=== PATIENT | female | born 2000 | race Two or more races ===

== ENCOUNTER 2020-06-23 15:46 | Emergency (ER) | payer OTHER ==
[~2020-06-23] VITALS: Ht 149.9 cm; Wt 54.4 kg
[2020-06-23 16:00] VITALS: BP 119/53
[2020-06-23] MEDS ORDERED: cefTRIAXone SOD 1,000 MG VL IM ONE (17:45)
== END 2020-06-23 19:33 | disposition home or self-care (01) ==
LOC: ER 15:46
DX: S81.012D Laceration without foreign body, left knee, subsequent encounter (principal); W45.8XXD Other foreign body or object entering through skin, subsequent encounter
CPT/HCPCS: 96372; 99283; J0696

== ENCOUNTER 2021-07-27 12:40 | Observation (INO) | payer MEDICAID ==
[2021-07-27] MEDS ORDERED: PREN-96 PO (13:15)
== END 2021-07-27 14:40 | disposition home or self-care (01) ==
LOC: LDRP 12:40
PROVIDERS: ADMIT Obstetrics & Gynecology Obstetrics; ATTEND Obstetrics & Gynecology Obstetrics
DX: O40.2XX0 Polyhydramnios, second trimester, not applicable or unspecified (principal); O26.892 Other specified pregnancy related conditions, second trimester; R60.0 Localized edema; Z3A.25 25 weeks gestation of pregnancy
CPT/HCPCS: 59025; 81002; 94760; G0378

== ENCOUNTER 2021-08-05 09:57 | Observation (INO) | payer MEDICAID ==
[~2021-08-05 09:57] MED LIST: PREN-96 PO
== END 2021-08-05 11:54 | disposition home or self-care (01) ==
LOC: LDRP 10:43
PROVIDERS: ADMIT Obstetrics & Gynecology; ATTEND Obstetrics & Gynecology
DX: O40.2XX0 Polyhydramnios, second trimester, not applicable or unspecified (principal); Z3A.27 27 weeks gestation of pregnancy
CPT/HCPCS: 59025; 81002; 94760; G0378

== ENCOUNTER 2021-08-12 09:59 | Observation (INO) | payer MEDICAID | END 2021-08-12 12:03 | disposition home or self-care (01) | LOC: LDRP 11:11 | PROVIDERS: ADMIT Obstetrics & Gynecology; ATTEND Obstetrics & Gynecology | DX: O40.3XX0 Polyhydramnios, third trimester, not applicable or unspecified (principal); Z3A.28 28 weeks gestation of pregnancy | CPT/HCPCS: 59025; 81002; 94760; G0378 ==

== ENCOUNTER 2021-08-19 11:32 | Observation (INO) | payer MEDICAID | END 2021-08-19 13:48 | disposition home or self-care (01) | LOC: LDRP 11:32 | PROVIDERS: ADMIT Obstetrics & Gynecology; ATTEND Obstetrics & Gynecology | DX: O40.3XX0 Polyhydramnios, third trimester, not applicable or unspecified (principal); O26.893 Other specified pregnancy related conditions, third trimester; R10.9 Unspecified abdominal pain; Z3A.29 29 weeks gestation of pregnancy | CPT/HCPCS: 59025; 81002; G0378 ==

== ENCOUNTER 2021-08-26 07:41 | Observation (INO) | payer MEDICAID | END 2021-08-26 12:54 | disposition home or self-care (01) | LOC: LDRP 11:25 | PROVIDERS: ADMIT Obstetrics & Gynecology; ATTEND Obstetrics & Gynecology | DX: O40.3XX0 Polyhydramnios, third trimester, not applicable or unspecified (principal); Z3A.30 30 weeks gestation of pregnancy | CPT/HCPCS: 59025; 81002; 94760; G0378 ==

== ENCOUNTER 2021-09-02 11:50 | Observation (INO) | payer MEDICAID | END 2021-09-02 13:35 | disposition home or self-care (01) | LOC: LDRP 11:50 → UNDOADMOB 11:50 → LDRP 12:55 → UNDODISOB 13:35 | PROVIDERS: ADMIT Obstetrics & Gynecology; ATTEND Obstetrics & Gynecology | DX: O40.3XX0 Polyhydramnios, third trimester, not applicable or unspecified (principal); Z3A.31 31 weeks gestation of pregnancy | CPT/HCPCS: 59025; 81002; 94760; G0378 ==

== ENCOUNTER 2021-09-10 07:35 | Observation (INO) | payer MEDICAID | END 2021-09-10 15:48 | disposition home or self-care (01) | LOC: LDRP 14:06 → UNDOADMOB 14:06 → LDRP 14:08 | PROVIDERS: ADMIT Obstetrics & Gynecology; ATTEND Obstetrics & Gynecology | DX: O40.3XX0 Polyhydramnios, third trimester, not applicable or unspecified (principal); O48.0 Post-term pregnancy; Z3A.32 32 weeks gestation of pregnancy | CPT/HCPCS: 59025; 76818; 94760; G0378 ==

== ENCOUNTER 2021-09-14 07:27 | Observation (INO) | payer MEDICAID | END 2021-09-14 12:26 | disposition home or self-care (01) | LOC: UNDOADMOB 10:15 → LDRP 10:15 → UNDODISOB 12:26 | PROVIDERS: ADMIT Obstetrics & Gynecology Obstetrics; ATTEND Obstetrics & Gynecology Obstetrics | DX: O40.3XX0 Polyhydramnios, third trimester, not applicable or unspecified (principal); Z3A.32 32 weeks gestation of pregnancy | CPT/HCPCS: 59025; 76818; 81002; G0378 ==

== ENCOUNTER 2021-09-17 11:15 | Observation (INO) | payer MEDICAID ==
[~2021-09-17] VITALS: Ht 149.9 cm; Wt 70.3 kg
== END 2021-09-17 12:44 | disposition home or self-care (01) ==
LOC: LDRP 11:15 → UNDOADMOB 11:15 → LDRP 11:24 → UNDODISOB 12:44
PROVIDERS: ADMIT Obstetrics & Gynecology; ATTEND Obstetrics & Gynecology
DX: O40.3XX0 Polyhydramnios, third trimester, not applicable or unspecified (principal); Z3A.33 33 weeks gestation of pregnancy
CPT/HCPCS: 59025; 76818; 81002; 94760; G0378

== ENCOUNTER 2021-09-22 07:37 | Observation (INO) | payer MEDICAID ==
[~2021-09-22] VITALS: Ht 149.9 cm; Wt 70.3 kg
[2021-09-23] MEDS ORDERED: ALBUMIN 5% 0 ML IV ONE (04:33)
== END 2021-09-25 15:41 | disposition home or self-care (01) ==
LOC: LDRP 09-25 14:03 → UNDOADMOB 09-25 14:03 → LDRP 09-25 14:33 → UNDODISOB 09-25 15:41
PROVIDERS: ADMIT Obstetrics & Gynecology; ATTEND Obstetrics & Gynecology
DX: O40.3XX0 Polyhydramnios, third trimester, not applicable or unspecified (principal); Z3A.34 34 weeks gestation of pregnancy
CPT/HCPCS: 59025; 76818; 81002; 94760; G0378

== ENCOUNTER 2021-09-28 08:45 | Observation (INO) | payer MEDICAID ==
[~2021-09-28] VITALS: Ht 149.9 cm; Wt 70.3 kg
== END 2021-10-01 15:18 | disposition home or self-care (01) ==
LOC: UNDOADMOB 08:45 → LDRP 08:45 → UNDOADMOB 10-01 14:03 → UNDODISOB 10-01 15:18
PROVIDERS: ADMIT Obstetrics & Gynecology; ATTEND Obstetrics & Gynecology
DX: O40.3XX0 Polyhydramnios, third trimester, not applicable or unspecified (principal); Z3A.35 35 weeks gestation of pregnancy
CPT/HCPCS: 59025; 76818; 81002; 94760; G0378

== ENCOUNTER 2021-10-05 11:00 | Observation (INO) | payer MEDICAID ==
[~2021-10-05] VITALS: Ht 149.9 cm; Wt 70.3 kg
== END 2021-10-05 14:06 | disposition home or self-care (01) ==
LOC: LDRP 11:00 → UNDOADMOB 11:00 → LDRP 11:39 → UNDODISOB 14:06
PROVIDERS: ADMIT Obstetrics & Gynecology Obstetrics; ATTEND Obstetrics & Gynecology Obstetrics
DX: O36.8930 Maternal care for other specified fetal problems, third trimester, not applicable or unspecified (principal); O40.3XX0 Polyhydramnios, third trimester, not applicable or unspecified; Z3A.35 35 weeks gestation of pregnancy
CPT/HCPCS: 59025; 76818; 81002; 94760; G0378

== ENCOUNTER 2021-10-08 10:32 | Observation (INO) | payer MEDICAID | END 2021-10-08 13:32 | disposition home or self-care (01) | LOC: LDRP 11:58 | PROVIDERS: ADMIT Obstetrics & Gynecology; ATTEND Obstetrics & Gynecology | DX: O40.3XX0 Polyhydramnios, third trimester, not applicable or unspecified (principal); Z3A.36 36 weeks gestation of pregnancy | CPT/HCPCS: 59025; 76818; 81002; 94760; G0378 ==

== ENCOUNTER 2021-10-27 08:49 | Observation (INO) | payer MEDICAID | END 2021-10-27 10:07 | disposition home or self-care (01) | LOC: UNDOADMOB 08:49 → LDRP 08:49 | PROVIDERS: ADMIT Obstetrics & Gynecology; ATTEND Obstetrics & Gynecology | DX: O46.93 Antepartum hemorrhage, unspecified, third trimester (principal); O26.893 Other specified pregnancy related conditions, third trimester; N89.8 Other specified noninflammatory disorders of vagina; Z3A.38 38 weeks gestation of pregnancy | CPT/HCPCS: 59025; 81002; 94760; G0378 ==

== ENCOUNTER 2021-10-28 04:13 | Observation (INO) | payer MEDICAID | END 2021-10-28 05:56 | disposition home or self-care (01) | LOC: LDRP 04:13 | PROVIDERS: ADMIT Obstetrics & Gynecology; ATTEND Obstetrics & Gynecology | DX: O62.9 Abnormality of forces of labor, unspecified (principal); Z3A.39 39 weeks gestation of pregnancy | CPT/HCPCS: 59025; 81002; G0378 ==

== ENCOUNTER 2021-10-28 10:15 | Inpatient (IN) | payer MEDICAID ==
[~2021-10-28] VITALS: Ht 144.8 cm; Wt 70.3 kg
[2021-10-28] MEDS ORDERED: PHISODERM TOP SOLN 240ML BTL TOP PRN (11:00)
[2021-10-28] MEDS ORDERED: LACTATED RINGER'S 1,000 ML IV SCH (11:00)
[2021-10-28] MEDS ORDERED: BUTORPHANOL TARTRATE 2 MG/1 ML VIAL IV PRN ×2 (11:00)
[2021-10-28] MEDS ORDERED: PROMETHAZINE HCL 25 MG/ML 1ML IV PRN (11:00)
[2021-10-28] MEDS ORDERED: LIDOCAINE 2%HCL (LOCAL ANESTH.) INJ 10ml MDV IJ PRN (11:00)
[2021-10-28 11:31] LABS: Basophils # (auto) 0 10 ^3/uL (0-0.2); Basophils % (auto) 0.2 % (0.0-2.0); Eosinophils # (auto) 0 10 ^3/uL (0-0.8); Hematocrit 40.2 % (36.0-46.0); Hemoglobin 13.5 g/dL (12.2-16.2); Lymphocytes # (auto) 0.9 10 ^3/uL (0.4-5.4); Lymphocytes % (auto) 5.2 % (10.0-50.0); Mean Corpuscular Hemoglobin 29.5 pg (28.0-32.0); Mean Corpuscular Hgb Conc. 33.6 g/dL (32.0-36.0); Mean Corpuscular Volume 87.9 fL (80.0-100.0); Monocytes # (auto) 0.3 10 ^3/uL (0-1.3); Monocytes % (auto) 1.9 % (0.0-12.0); Neutrophils # (auto) 16.5 10 ^3/uL (1.6-8.6); Neutrophils % (auto) 92.7 % (37.0-80.0); Red Blood Cells 4.58 10^6/uL (4.0-5.20); Red Cell Distribution Width 14.8 % (11.8-14.3); White Blood Cell 17.8 10^3/uL (4.4-10.8)
[2021-10-28 11:42] LABS: Potassium 3.2 mmol/L (3.5-5.1)
[2021-10-28 11:47] LABS: BUN/Creatinine Ratio 16.7; Bilirubin, Total 0.5 mg/dL (0.2-1.0); INR 0.97 (0.9-1.15); Partial Thromboplastin Time 29.3 sec (24.6-33.4); Total Protein 7.5 g/dL (6.4-8.2)
[2021-10-28] MEDS ORDERED: LACT. RINGERS/OXYTOCIN 20UNITS 500 ML IV ONE ×2 (12:15→12:45)
[2021-10-28] MEDS ORDERED: LIDOCAINE 2%HCL (LOCAL ANESTH.) INJ 10ml MDV ONE ×2 (12:47→12:49)
[2021-10-28] MEDS ORDERED: METHYLERGONOVINE MALEATE 0.2 MG/ML AMP IM ONE ×2 (12:58→13:00)
[2021-10-28] MEDS: WITCH HAZEL-GLYCERIN PAD TOP PRN (15:03)
[2021-10-28] MEDS: DERMOPLAST 60ML BOTTLE TOP PRN (15:04)
[2021-10-28 15:25] VITALS: BP 123/73
[2021-10-28] MEDS ORDERED: ONDANSETRON ODT 4 MG TAB PO PRN (16:30)
[2021-10-28] MEDS ORDERED: ACETAMINOPHEN 325 MG TAB PO PRN (16:30)
[2021-10-28] MEDS: IBUPROFEN 600 MG TAB PO PRN ×2 (16:39→22:09)
[2021-10-28 17:28] LABS: Urine Amorphous Crystal FEW /hpf (None Seen); Urine Bacteria FEW /hpf (None Seen); Urine Blood 3+ /uL (Negative); Urine Specific Gravity 1.014 (1.001-1.035); Urine WBC 258 /hpf (0 - 5)
[2021-10-28 17:48] LABS: Alcohol, Urine < 3.0 mg/dL (0-10); Amphetamine Screen, Urine NEGATIVE (NEGATIVE); Barbiturate Scree,Urine NEGATIVE (NEGATIVE); Benzodiazephine Screen, Urine NEGATIVE (NEGATIVE); Cannabinoid Screen, Urine NEGATIVE (NEGATIVE); Cocaine Screen, Urine NEGATIVE (NEGATIVE); Opiate Scree,Urine NEGATIVE (NEGATIVE); Phencyclidine Screen, Urine NEGATIVE (NEGATIVE)
[2021-10-28 19:00] VITALS: BP 118/59
[2021-10-28] MEDS ORDERED: DOCUSATE SOD 100 MG CAP PO SCH (22:00)
[2021-10-28 23:00] VITALS: BP 116/57
[2021-10-29 03:00] VITALS: BP 116/61
[2021-10-29] MEDS: IBUPROFEN 600 MG TAB PO PRN (03:24)
[2021-10-29 07:00] VITALS: BP 108/57
[2021-10-29 08:06] LABS: RPR Non Reactive (Non Reactive)
[2021-10-29 11:00] VITALS: BP 119/60
[2021-10-29 15:00] VITALS: BP 125/60
[2021-10-29 19:21] VITALS: BP 108/59
[2021-10-29] MEDS: WITCH HAZEL-GLYCERIN PAD TOP PRN (19:30)
[2021-10-29] MEDS: DERMOPLAST 60ML BOTTLE TOP PRN (19:30)
== END 2021-10-29 19:52 | disposition home or self-care (01) | DRG 560 ==
LOC: LDRP 10:15 → OBSVTOIN 10:50
PROVIDERS: ADMIT Obstetrics & Gynecology; ATTEND Obstetrics & Gynecology
PROC: 10E0XZZ Delivery of Products of Conception, External Approach (ICD-10-PCS; principal; 2021-10-28)
PROC: 0KQM0ZZ Repair Perineum Muscle, Open Approach (ICD-10-PCS; 2021-10-28)
PROC: 0UQMXZZ Repair Vulva, External Approach (ICD-10-PCS; 2021-10-28)
DX: O70.1 Second degree perineal laceration during delivery (principal); Z37.0 Single live birth; O71.82 Other specified trauma to perineum and vulva; Z3A.39 39 weeks gestation of pregnancy; Z20.822 Contact with and (suspected) exposure to COVID-19
CPT/HCPCS: 36415; 59025; 59409; 80053; 80307; 81001; 81002; 85025; 85610; 85730; 86592; 86850; 86900; 86901; 94760; 96360; 96361; 96365; 96372; G0378; J2001; J2590